=== PATIENT | female | born 1935 | race Caucasian/White ===

== ENCOUNTER 2017-12-09 09:57 | Emergency (ER) | payer MEDICARE ==
--- NOTE | 2017-12-09 10:22 | ED ---
General Adult HPI - General Chief complaint: Skin/Abscess/Foreign Body Stated complaint: Shingles Time Seen by Provider: 12/09/17 10:22 Source: patient Mode of arrival: ambulatory Limitations: no limitations - History of Present Illness Initial comments: Patient sent to ER from urgent care for possible shingles on the face. Patient states 3 days ago she began having right eyelid swelling, states over the past 2 days it has progressed to bumps and pain on the right forehead. States pain is worse along right forehead hairline. Patient states she has had shingles once in the past when she was younger. Patient denies any eye pain, vision changes, pain with eye movements, eye trauma, fevers, chills, lesions on nose, possible drainage. Patient states Tylenol helped initially for the pain, however pain has become more severe. Patient denies any immunocompromise state or trouble fighting infections. - Related Data Home Medications Medication Instructions Recorded Confirmed Atenolol 25 mg PO HS 12/09/17 12/09/17 amLODIPine [Norvasc] 10 mg PO DAILY 12/09/17 12/09/17 Previous Rx's Medication Instructions Recorded Acetaminophen Tab [Tylenol Tab] 650 mg PO Q4H PRN #60 tablet 12/09/17 HYDROcodone/APAP 7.5-325MG [Geddes 1 tab PO Q4H PRN 2 Days #12 tab 12/09/17 7.5-325] Ibuprofen [Motrin] 600 mg PO Q6HR PRN #30 tab 12/09/17 predniSONE See Taper PO DAILY 10 Days #19 tab 12/09/17 valACYclovir HCL [Valacyclovir] 1,000 mg PO Q8HR 10 Days #30 tab 12/09/17 Allergies Allergy/AdvReac Type Severity Reaction Status Date / Time Penicillins Allergy Rash/Hives Verified 12/09/17 10:53 Review of Systems ROS Statement: Those systems with pertinent positive or pertinent negative responses have been documented in the HPI. Constitutional: Denies: fever, chills, weakness, night sweats Eyes: Reports: other (Right eyelid swelling). Denies: eye pain, eye discharge, vision change ENT: Denies: ear pain, throat pain, dental pain, hearing loss, epistaxis, congestion Respiratory: Denies: cough, dyspnea Cardiovascular: Denies: chest pain, palpitations Endocrine: Denies: fatigue Gastrointestinal: Denies: abdominal pain, nausea, vomiting Skin: Reports: rash, lesions Neurological: Denies: headache, weakness, numbness, paresthesias Past Medical History Past Medical History: Hypertension History of Any Multi-Drug Resistant Organisms: None Reported Past Surgical History: Hysterectomy, Joint Replacement, Orthopedic Surgery Additional Past Surgical History / Comment(s): bilateral elbows, right hip replacement Past Psychological History: No Psychological Hx Reported Smoking Status: Never smoker Past Alcohol Use History: None Reported Past Drug Use History: None Reported General Exam - General Exam Comments Initial Comments: Sitting up in bed. No acute distress. Conversing normally. Calm, pleasant. Well appearing other than rash on face. Smiling, making jokes. Limitations: no limitations General appearance: alert, in no apparent distress Head exam: Present: atraumatic, normocephalic, other (Multiple 3-5 mm vesicles right forehead, just into the hairline on the right side of the superior head. No drainage from vesicles at this time. No crusting, no erythema, no purulence. ) Eye exam: Present: PERRL, EOMI, periorbital swelling, other (Mild swelling rate eyelid. Mild periorbital edema. Mild conjunctival injection. No drainage, purulence from the eye. Eye movements intact bilaterally without pain. No proptosis. Pupils equal and reactive bilaterally. Fundus unable to be visualized. Patient intact bilaterally to small print. Fluorescein staining of the eye shows no dendritic lesions, no corneal abrasions, Ernesto sign negative, no abnormalities Under wood's lamp evaluation. No lesions on patient' s nose. No lesions on ears, hearin aids bilat. ). Absent: conjunctival injection, periorbital tenderness Pupils: Present: normal accommodation ENT exam: Present: normal exam, normal oropharynx, mucous membranes moist, other (Oropharynx clear, no mucosal lesions.) Neck exam: Present: normal inspection, full ROM. Absent: tenderness, lymphadenopathy Respiratory exam: Present: normal lung sounds bilaterally, respiratory distress Cardiovascular Exam: Present: normal rhythm, tachycardia (HR 104 on monitor) GI/Abdominal exam: Present: soft. Absent: distended, tenderness Extremities exam: Present: normal inspection Back exam: Present: normal inspection Neurological exam: Present: alert, oriented X3 Psychiatric exam: Present: normal affect, normal mood Skin exam: Present: warm, dry, rash, vesicles, other (see eye & ENT above.) Course Vital Signs 12/09/17 10:06 Temperature 98.0 F Pulse Rate 110 H Respiratory 18 Rate Blood Pressure 172/95 O2 Sat by Pulse 93 L Oximetry Medical Decision Making - Medical Decision Making Patient symptoms do appear consistent with early herpes zoster of the right forehead, right upper eyelid. Does not appear to involve the eye or nose. No dendritic lesions on the eye. Pt has no complaints or eye pain or vision change. Patient states she did get mild relief from Tylenol at home, however has had increasing pain along the hairline of her forehead. Discuss treatment options with patient and daughter. At this time I do not feel patient requires admission to the hospital for IV antibiotic therapy, patient does not appear to have any eye involvement. We'll trial course of valacyclovir for 10 days, Tylenol and Motrin for pain, Geddes for breakthrough pain. Patient understands to take either Tylenol or Geddes per dose, as Geddes has Tylenol in it. Patient Costen about opiates, fall risk, no driving or heavy machinery use. Patient given prescription of oral steroid taper for 10 days. 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 Patient is from [place], [place], agrees to follow up with wound specialist in [facility] Dr. Roberson for reevaluation in one to 2 days. Patient was instructed to return to ER immediately if new or worsening symptoms including eye pain, vision changes, fevers, chills. Cautioned patient against possible superimposed bacterial infection given oral steroid use, patient to monitor for erythema, pus drainage, any other signs of bacterial infection, return to ER immediately if these occur. Pt placed on monitor, heart rate improved to 94 spontaneously at time of discharge. Both patient and daughter understand and are happy with plan of care, felt comfortable following up as outpatient and returning to the ER as needed. Disposition Clinical Impression: Herpes zoster Disposition: HOME SELF-CARE Condition: Good Instructions: Shingles (ED) Additional Instructions: Follow-up with primary care physician one to 2 days. Return to ER immediately if new or worsening symptoms including eye pain, vision changes, purulent drainage, fevers, chills, headache Prescriptions: Acetaminophen Tab [Tylenol Tab] 650 mg PO Q4H PRN #60 tablet PRN Reason: Pain HYDROcodone/APAP 7.5-325MG [Geddes 7.5-325] 1 tab PO Q4H PRN 2 Days #12 tab PRN Reason: Severe Pain Ibuprofen [Motrin] 600 mg PO Q6HR PRN #30 tab PRN Reason: Pain predniSONE See Taper PO DAILY 10 Days #19 tab valACYclovir HCL [Valacyclovir] 1,000 mg PO Q8HR 10 Days #30 tab Is patient prescribed a controlled substance at d/c from ED?: Yes When asked, does pt state using other controlled substances?: No If prescribed controlled substance>3 days was MAPS reviewed?: Prescribed <3 Days If opioid is for acute pain is fill amount 7 days or less?: Yes Referrals: Nonstaff,Physician [Primary Care Provider] - 1-2 days Srinivas Roberson MD [STAFF PHYSICIAN] - 1-2 days
[2017-12-09] MEDS ORDERED: TETRACAINE 0.5% OPHTH DROPS 15 ML BTL RIGHT EYE STA (10:31)
[2017-12-09 11:14] VITALS: BP 159/70; PULSE 90; RESP 16; TEMP 97.9
== END 2017-12-09 11:13 | disposition home or self-care (01) ==
LOC: EC 09:57
DX: B02.9 Zoster without complications (principal); I10 Essential (primary) hypertension; Z90.710 Acquired absence of both cervix and uterus; Z96.641 Presence of right artificial hip joint; Z98.890 Other specified postprocedural states; Z79.899 Other long term (current) drug therapy; Z88.0 Allergy status to penicillin
CPT/HCPCS: 99283